=== PATIENT | female | born 1940 | race Caucasian/White ===

== ENCOUNTER 2018-05-19 08:00 | Observation (INO) | payer MEDICARE, BC ==
[~2018-05-19 08:00] MED LIST: CEFAZOLIN 2 GM/50 ML (PMX) 50 ML (FOR WT < 120 KG) IVPB; DESFLURANE 15 MIN
[2018-05-19] MEDS: DEXAMETHASONE 4 MG/ML 1 ML INJ IV (09:30)
[2018-05-19] MEDS: ACETAMINOPHEN 500 MG TAB PO (09:30)
[2018-05-19] MEDS: LACTATED RINGER'S 1,000 ML IV (09:31)
[2018-05-19] MEDS: hydrALAzine 20 MG INJ IV ×2 (09:44→10:31)
[2018-05-19] MEDS: LABETALOL HCL 20MG INJ IV (11:05)
[2018-05-19] MEDS ORDERED: ROCURONIUM 50 MG INJ (11:16)
[2018-05-19] MEDS ORDERED: CEFAZOLIN 1 GM INJ (11:16)
[2018-05-19] MEDS ORDERED: NEOSTIGMINE 3 MG/3 ML SYRINGE (11:16)
[2018-05-19] MEDS ORDERED: PROPOFOL 20 ML (11:16)
[2018-05-19] MEDS ORDERED: GLYCOPYRROLATE 0.4 MG INJ (11:16)
[2018-05-19] MEDS ORDERED: ONDANSETRON 4 MG INJ (11:17)
[2018-05-19] MEDS ORDERED: MIDAZOLAM 1 MG/ML 2 ML INJ (11:17)
[2018-05-19] MEDS ORDERED: FENTAnyl 50 MCG/ML VIAL (11:17)
[2018-05-19] MEDS ORDERED: morphine SULFATE/PF (10 MG/10 ML) INJ (11:36)
[2018-05-19] MEDS ORDERED: DEXAMETHASONE 4 MG/ML 5 ML INJ (11:37)
[2018-05-19] MEDS ORDERED: ROPIVACAINE 0.5 % 30 ML VIAL (11:37)
[2018-05-19] MEDS ORDERED: NACL 0.9% 3 ML SYG IV (12:00)
[2018-05-19] MEDS ORDERED: oxyCODONE 5 MG TAB PO ×3 (12:00)
[2018-05-19] MEDS ORDERED: DIPHENHYDRAMINE 50 MG INJ IV (12:00)
[2018-05-19] MEDS ORDERED: SENNA/DOCUSATE NA (8.6MG/50MG) TAB PO (12:00)
[2018-05-19] MEDS ORDERED: MAGNESIUM HYDROXIDE 30ML CUP PO (12:00)
[2018-05-19] MEDS ORDERED: NALOXONE (0.4 MG/ML) INJ IV (12:00)
[2018-05-19] MEDS ORDERED: BISACODYL 10 MG SUPP PR (12:00)
[2018-05-19] MEDS ORDERED: NA PHOSPHATE/BIPHOS 133 ML ENEMA PR (12:00)
[2018-05-19] MEDS ORDERED: BETHANECHOL 25 MG TAB PO (12:00)
[2018-05-19] MEDS: POLYMYXIN B 500000 UNIT INJ (12:26)
[2018-05-19] MEDS: BACITRACIN 50000 UNITS INJ (12:26)
[2018-05-19] MEDS: SODIUM CHLORIDE IVPB (12:28)
[2018-05-19] MEDS: TRANEXAMIC ACID 1000 MG IVPB (12:28)
[2018-05-19] MEDS: [UNRECOGNIZED DRUG - OTHER] IVPB (12:28)
[2018-05-19] MEDS: TRANEXAMIC ACID IVPB (12:28)
[2018-05-19] MEDS: ASPIRIN (EC) 325 MG TAB PO (14:11)
[2018-05-19] MEDS: DOCUSATE SODIUM 100 MG CAP PO (14:11)
[2018-05-19] MEDS: SOD CHLORIDE 0.9% 1,000 ML IV (15:24)
[2018-05-19] MEDS: GABAPENTIN 100 MG CAP PO ×3 (15:26→21:22)
[2018-05-19] MEDS: VANCOMYCIN 1 GM (PMX) 250 ML IVPB (18:35)
[2018-05-19] MEDS: VALACYCLOVIR 500 MG TAB PO (21:00)
[2018-05-19] MEDS: URSODIOL 300 MG CAP PO (21:00)
[2018-05-19] MEDS: traZODone 100 MG TAB PO (21:22)
[2018-05-20] MEDS: SOD CHLORIDE 0.9% 1,000 ML IV (00:21)
[2018-05-20] MEDS: VANCOMYCIN 1 GM (PMX) 250 ML IVPB (05:27)
[2018-05-20] MEDS: GABAPENTIN 100 MG CAP PO ×4 (08:59→13:00)
[2018-05-20] MEDS: ASPIRIN (EC) 325 MG TAB PO (09:00)
[2018-05-20] MEDS: URSODIOL 300 MG CAP PO (09:00)
[2018-05-20] MEDS: DOCUSATE SODIUM 100 MG CAP PO (09:00)
[2018-05-20] MEDS: ESCITALOPRAM 10 MG TAB PO (09:00)
[2018-05-20] MEDS: FOLIC ACID 0.4 MG TAB PO (09:00)
[2018-05-20] MEDS: CELECOXIB 100 MG CAP PO (09:00)
[2018-05-20] MEDS: VALACYCLOVIR 500 MG TAB PO ×2 (09:00→13:00)
[2018-05-20] MEDS: CHOLECALCIFEROL 1,000 UNIT TAB PO (09:00)
[2018-05-20] MEDS: AMLODIPINE 5 MG TAB PO (09:07)
[2018-05-20] MEDS ORDERED: ONDANSETRON 4 MG INJ IV (12:00)
[2018-05-21] MEDS ORDERED: PANTOPRAZOLE (EC) 40 MG TAB PO (06:00)
== END 2018-05-20 15:10 | disposition home health service (06) ==
LOC: SDS 08:00 → REC 11:55 → MS1 14:48
DX: M17.12 Unilateral primary osteoarthritis, left knee (principal); I12.9 Hypertensive chronic kidney disease with stage 1 through stage 4 chronic kidney disease, or unspecified chronic kidney disease; N18.9 Chronic kidney disease, unspecified
CPT/HCPCS: 27447; 73560; 86850; 86900; 86901; 87081; 88304; 88311; 97110; 97116; 97162; 97167; 97530